=== PATIENT | male | born 1935 | race Caucasian/White ===

== ENCOUNTER 2017-10-16 14:03 | Inpatient (IN) | payer OTHER, MEDICARE ==
[~2017-10-16] VITALS: Ht 157.5 cm; Wt 60.9 kg
[2017-10-16 14:09] VITALS: Ht 157.5 cm; Wt 60.9 kg
[2017-10-16 15:05] LABS: BASOPHIL % 0.3 % (0-2); PLATELET COUNT 197 x10^3mcL (130-400); RED CELL DISTRIBUTION WIDTH 13.3 % (11.5-14.5)
[2017-10-16 15:06] LABS: CALCIUM 8.7 mg/dL (8.5-10.1); CARBON DIOXIDE 24.8 mmol/L (21-32); CHLORIDE SERUM 111 mmol/L (98-107); CREATININE SERUM 1.4 mg/dL (0.7-1.3); GLUCOSE SERUM 149 mg/dL (74-106); POTASSIUM SERUM 3.3 mmol/L (3.5-5.1); SODIUM SERUM 146 mmol/L (136-145)
[2017-10-16 15:12] LABS: ALKALINE PHOSPHATASE 102 U/L (46-116); ALT/SGPT 16 U/L (16-63); AST/SGOT 21 U/L (15-37); TOTAL PROTEIN, SERUM 6.9 g/dL (6.4-8.2)
[2017-10-16 15:13] LABS: ALBUMIN 2.8 g/dL (3.4-5.0)
[2017-10-16 16:16] LABS: microscopic required? YES; urine erythrocyte 2+ (NEGATIVE)
[2017-10-16 16:38] LABS: MAGNESIUM 1.9 mg/dL (1.8-2.4); PHOSPHOROUS 2.7 mg/dL (2.5-4.9)
[2017-10-16 16:45] LABS: T3 TOTAL 1.1 ng/mL
[2017-10-16 16:49] LABS: FREE T4 1.02 ng/dL (0.76-1.46); FREE THYROXINE INDEX 2.5 ug/dL (1.4-4.5); T4(THYROXINE) 7.6 ug/dL (4.7-13.3)
[2017-10-16 17:29] VITALS: BP 152/61
[2017-10-16 19:40] VITALS: BP 135/68
[2017-10-16 21:12] VITALS: BP 150/66
[2017-10-17 06:06] LABS: BASOPHIL % 0.2 % (0-2); PLATELET COUNT 198 x10^3mcL (130-400); RED CELL DISTRIBUTION WIDTH 13.3 % (11.5-14.5)
[2017-10-17 06:21] VITALS: BP 137/62
[2017-10-17 06:26] LABS: CALCIUM 8.6 mg/dL (8.5-10.1); CARBON DIOXIDE 25.1 mmol/L (21-32); CHLORIDE SERUM 109 mmol/L (98-107); CREATININE SERUM 1.6 mg/dL (0.7-1.3); GLUCOSE SERUM 109 mg/dL (74-106); POTASSIUM SERUM 3.5 mmol/L (3.5-5.1); SODIUM SERUM 145 mmol/L (136-145)
[2017-10-17 09:58] VITALS: BP 127/60
[2017-10-17 13:55] VITALS: BP 128/50
[2017-10-17 17:55] VITALS: BP 141/57
[2017-10-17 20:38] VITALS: BP 131/53
[2017-10-18 05:38] VITALS: BP 133/59
[2017-10-18 07:54] LABS: CALCIUM 8.5 mg/dL (8.5-10.1); CARBON DIOXIDE 28.4 mmol/L (21-32); CHLORIDE SERUM 109 mmol/L (98-107); CREATININE SERUM 1.9 mg/dL (0.7-1.3); GLUCOSE SERUM 112 mg/dL (74-106); POTASSIUM SERUM 3.6 mmol/L (3.5-5.1); SODIUM SERUM 144 mmol/L (136-145)
[2017-10-18 08:17] VITALS: BP 134/60
[2017-10-18 13:38] VITALS: BP 100/46
[2017-10-18] MEDS ORDERED: LEVOFLOXACIN500 M1 PO (17:02)
[2017-10-18] MEDS ORDERED: CLINDAMYCIN HC300 MG PO (17:03)
[2017-10-18] MEDS ORDERED: BD LACTINEX1.4 MG PO (17:03)
[2017-10-18 17:29] VITALS: BP 100/46
[2017-10-18 17:54] VITALS: BP 125/53
[2017-10-18] MEDS ORDERED: ALD25 PO (18:16)
[2017-10-18] MEDS ORDERED: L40I PO (18:16)
[2017-10-18] MEDS ORDERED: ZES10 PO (18:16)
[2017-10-18] MEDS ORDERED: COR3 PO (18:16)
== END 2017-10-18 19:15 | disposition home health service (06) | DRG 137 ==
LOC: ED 14:03 → DU 15:38
PROVIDERS: Emergency Medicine; Family Medicine
DX: J69.0 Pneumonitis due to inhalation of food and vomit (principal); N17.0 Acute kidney failure with tubular necrosis; J96.01 Acute respiratory failure with hypoxia; E11.9 Type 2 diabetes mellitus without complications; I50.43 Acute on chronic combined systolic (congestive) and diastolic (congestive) heart failure; E87.6 Hypokalemia; E02 Subclinical iodine-deficiency hypothyroidism; R31.9 Hematuria, unspecified; I42.0 Dilated cardiomyopathy; G93.41 Metabolic encephalopathy; E44.0 Moderate protein-calorie malnutrition; Z87.891 Personal history of nicotine dependence; Z68.26 Body mass index [BMI] 26.0-26.9, adult
CPT/HCPCS: 83880; 84439; 94150; 97110-GP; J1940; J2543; J7030; J7620; Q0092